=== PATIENT | female | born 1995 | race Caucasian/White ===

== ENCOUNTER → 2020-09-01 | Outpatient (CLI) | payer OTHER ==
--- NOTE | 2020-09-01 16:00 | REP ---
INDICATION: ANATOMY. COMPARISON: 07/07/2020. TECHNIQUE: Real-time sonographic evaluation of the gravid uterus performed. FINDINGS: Estimated gestational age is21 weeks 5 days, EDC 01/07/2021. Today's measurements indicate appropriate growth. Presentation: Breech Placenta posterior, grade 0, without evidence of placenta previa. heart rate is recorded at 158 beats per minute. Amniotic fluid is subjectively normal. Closed cervical length is measured at 4.0 cm. Biometry chart: BPD: 48 mm, 20 weeks 4 days, 19th percentile. HC: 176 mm, 20 weeks 0 days, less than 5th percentile AC: 161 mm, 21 weeks 1 days, 39th percentile Femur length: 34 mm, 20 weeks 5 days, if 24th percentile HC to AC ratio: 1.09, normal range 1.05-1.24. Estimated weight: 382g, 11th percentile. anatomy: Cranium: Grossly normal Lateral Ventricles/Choroid Plexus: Grossly normal Posterior Fossa/Cerebellum: Grossly normal Nose/lips/profile: Grossly normal Four chamber heart: Grossly normal Right ventricular outflow tract: Grossly normal Left ventricular outflow tract: Grossly normal Left-sided stomach: Grossly normal Kidneys: Grossly normal Bladder: Grossly normal Cord Insertion: Grossly normal 3 vessel cord: Grossly normal Spine: Grossly normal IMPRESSION: Viable single intrauterine gestation as above. <Electronically signed by Wilman Sarmiento > 09/01/20 [id number]
== END ==
LOC: M WHC 12:18
PROVIDERS: ATTEND Obstetrics & Gynecology
DX: Z34.82 Encounter for supervision of other normal pregnancy, second trimester (principal); Z3A.21 21 weeks gestation of pregnancy